=== PATIENT | female | born 1990 | race Caucasian/White ===

== ENCOUNTER → 2020-09-28 14:39 | Outpatient (BNVA) | payer OTHER, SELFPAY | PROVIDERS: Family Provider Nurse Practitioner Family; Visit Provider Obstetrics & Gynecology | DX: Z34.90 Encounter for supervision of normal pregnancy, unspecified, unspecified trimester (principal) | CPT/HCPCS: 80307; 84315; 85025; 86592; 86762; 86803; 86850; 86900; 87086; 87340; 87491; 87591; 87661; 88175 ==

== ENCOUNTER → 2020-11-27 11:32 | Outpatient (BNVA) | payer OTHER, SELFPAY | PROVIDERS: Family Provider Nurse Practitioner Family; Visit Provider Obstetrics & Gynecology | DX: Z34.90 Encounter for supervision of normal pregnancy, unspecified, unspecified trimester (principal) | CPT/HCPCS: 82950; 85025 ==

== ENCOUNTER → 2021-01-11 09:28 | Outpatient (BNVA) | payer OTHER, SELFPAY | PROVIDERS: Family Provider Nurse Practitioner Family; Visit Provider Obstetrics & Gynecology | DX: O09.30 Supervision of pregnancy with insufficient antenatal care, unspecified trimester (principal); O34.219 Maternal care for unspecified type scar from previous cesarean delivery; F12.90 Cannabis use, unspecified, uncomplicated; O99.320 Drug use complicating pregnancy, unspecified trimester; Z3A.00 Weeks of gestation of pregnancy not specified | CPT/HCPCS: 84315; 87081 ==

== ENCOUNTER → 2021-02-08 08:58 | Outpatient (BNVA) | payer OTHER, SELFPAY | PROVIDERS: Family Provider Nurse Practitioner Family; Visit Provider Obstetrics & Gynecology | DX: Z34.83 Encounter for supervision of other normal pregnancy, third trimester (principal) | CPT/HCPCS: 84315; 87635 ==

== ENCOUNTER 2021-02-10 05:48 | Inpatient (IN) | payer OTHER, SELFPAY ==
[2021-02-10] VITALS (98 sets, daily range): BP systolic 106–155; BP diastolic 56–92; PULSE 48–102; RESP 16; TEMP 35.7–38.4; O2SAT 81–100; BMI 32.4
[2021-02-10 06:03] LABS: Basophils # 0.1 10^3/uL (0.0-0.1); Basophils % 0.5 %; Eosinophils # 0.1 10^3/uL (0.0-0.8); Eosinophils % 0.4 %; Hematocrit 38.6 % (37.0-47.0); Hemoglobin 13.4 g/dL (11.5-15.3); Lymphocytes # 3.3 10^3/uL (0.8-4.8); Lymphocytes % 17.6 %; Mean Corpuscular HGB Conc 34.7 g/dL (30.0-36.0); Mean Corpuscular Hemoglobin 31.8 pg (28.0-34.0); Mean Corpuscular Volume 91.7 fl (81-99); Mean Platelet Volume 12.5 fL (7.4-10.4); Monocytes % 5.4 %; Neutrophils # 14.15 10^3/uL (1.8-7.7); Neutrophils % 75.4 %; Nucleated Red Blood Cells % 0 %; Platelet Count 191 10^3/cmm (130-400); Red Blood Count 4.21 10^6/uL (4.1-5.3); Red Cell Distribution Width 13.1 % (12.1-15.1); White Blood Count 18.8 10^3/uL (4.0-10.0)
[2021-02-10] MEDS: lactated ringers 1,000 ML 999 ML IV ×4 (06:05→17:04)
[2021-02-10] MEDS: fentaNYL 50 mcg/mL INJ 2mL IVP ×2 (06:10→07:13)
--- NOTE | 2021-02-10 06:22 | PM.OPHPUD ---
Labor & Delivery H&P Update Date of Procedure: February 10, 2021 Date H&P Performed: 02/08/21 H&P update information: I have reviewed H&P completed within last 30 days, I have examined patient prior to procedure and Changes to prior documentation as noted here Changes to previous documentation: The patient presented in active labor. She was scheduled for a repeat today and has elected to . cervix 3.5/100/-2. Labor started at midnight and contractions became stronger at 3:00 am. Admission Diagnosis: active labor at 40 5/7 weeks
[2021-02-10] MEDS: dextrose 5%-lactated ringers 1,000 ML 125 ML IV (08:55)
[2021-02-10 09:46] LABS: Amphetamines Screen Urine Negative (Negative); Barbiturates Screen Urine Negative (Negative); Benzodiazepines Screen Urine Negative (Negative); Cocaine Screen Urine Negative (Negative); Opiate Screen Urine Negative (Negative); PCP Screen Urine Negative (Negative); THC Screen Urine Positive (Negative)
--- NOTE | 2021-02-10 15:30 | PC.NURSE ---
Prater noted to have minimal output since 1200. Attempted to deflate balloon and advance past baby's head. Prater only contained 2 mL of fluid and noted to be faulty. Prater placed in urethra and advanced to port and balloon inflated. Balloon pulled forward in bladder until resistance met. Prater removed and new one placed with no urine return. Verified placement with second nurse.
[2021-02-10] MEDS: dextrose 5%-lactated ringers 1,000 ML 999 ML IV (16:06)
[2021-02-10] MEDS: acetaminophen 325 mg Tablet 650 MG PO ×2 (16:35→23:37)
--- NOTE | 2021-02-10 16:41 | P.PN_ITS ---
PHYS THER Subjective Subjective: Interval history: The patient was scheduled for a repeat this morning. She presented in active labor. Her original plan was to have a . She was allowed to labor and she received an epidural for pain management. She has made only minimal change in the 12 hours that she has been here, in spite of having a very adequate contraction pattern. I have discussed that we can keep going, but my recommendation would be to perform a . She agrees and would like to proceed. She has now spiked a fever of 101.5 and we will start antibiotics per protocol Labor: Station: -1 Amniotic Membrane Status: Ruptured Monitor Mode: Palpation Contraction Pattern: Regular Status: Category II Vitals/I&O/Wt Last Vital Signs Temp 98.9 F 02/10/21 13:55 Pulse 70 02/10/21 16:11 Resp 16 02/10/21 13:30 BP 124/63 02/10/21 16:11 Pulse Ox 100 02/10/21 16:11 02/10/21 02/10/21 02/10/21 06:59 14:59 22:59 Intake Total 3000 / 3000 Output Total 230 / 230 12 / 242 Balance 2770 / 2770 -12 / 2758 Weight last 48 hrs Weight 5.855 oz Weight 166 lb Physical Exam : MANUAL OB EXAM: dilated 5 cm, effaced fully and station -2 Extremity: COMMON NORMALS: no clubbing, cyanosis or edema and no calf tenderness Urinary Catheter Management^: Prater Latex: Cath Placed During This Visit: yes, but has since been removed by the nurse Reason for Continuing Indwelling Catheter: Decision to DC Catheter Urinary Catheter Date of Insertion: 02/10/21 Urinary Catheter Time of Insertion: 15:30 Date Urinary Catheter Removed: 02/10/21 Time Urinary Catheter Discontinued: 15:30 Data : 02/10/21 05:27 A&P Assessment and plan (1) Failure to progress in labor: Status: Acute (2) Previous delivery affecting : Status: Acute Attestations Medical Necessity Statement*: The patient will undergo section and need to be here at least two nights. 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
--- NOTE | 2021-02-10 16:49 | PC.NURSE ---
After Dr. vázquez's exam she talked with patient regarding delivery. Patient agreeable at this time.
[2021-02-10] MEDS: ampicillin 2,000 MG in sodium chloride 0.9% (plus) 50 ML 100 MG IV (17:03)
[2021-02-10] MEDS: metoclopramide 5 mg/mL SDV 2 mL 10 MG IVP (17:04)
[2021-02-10] MEDS: famotidine 20 mg/2 mL INJ IVP (17:04)
[2021-02-10] MEDS: citric acid-sodium citrate 30 mL UDC PO (17:05)
--- NOTE | 2021-02-10 18:53 | PM.OP ---
Operative Report Date of procedure: February 10, 2021 Pre-op Diagnosis: failure to progress, failed TOLAC Post-op diagnosis: same Post-op Findings: term female in the ROP presentation. Bladder adhesion to the entire anterior of uterus. Procedure Done: repeat Specimens removed/disposition: placenta- not sent to pathology Pathology: none sent Surgeon: Jaye Mandujano Anesthesia: Epidural and Other Estimated blood loss (mL): 500 IV fluids (mL): 900 Urine output (mL): 150 Complications: none Findings: term female in the cephalic presentation Condition: stable Disposition: floor Brief History: The patient was initially scheduled for a repeat , but presented to labor and delivery early in active labor. She failed to progress and it was determined that the baby was malpositioned and OP. A repeat was decided. Procedure: The patient was taken to the operating room where spinal anesthesia was administered and found to be adequate. She was prepped and draped in the normal sterile fashion in the dorsal supine position with a leftward tilt. A Pfannenstiel skin incision was made and carried down to the underlying layer of fascia. The fascia was nicked in the midline and extended laterally with the Trejo scissors. The fascia was then tented up and the rectus muscles dissected off sharply. The rectus muscles were and the peritoneum entered bluntly with the digit. The peritoneal incision was extended superiorly and inferiorly with good visualization of the bladder. The Wallace O retractor was placed. It was clear of any bowel or omentum. The bladder flap was created sharply with the Metzenbaum scissors. A low transverse uterine incision was made and carried down to the bag of water. The bag of water was ruptured and the uterine incision extended cephalocaudad. The scalp was grasped and brought through the incision. The nose and mouth were bulb suctioned. The shoulders and body delivered atraumatically. The baby was allowed to rest, while being dried, for 1 minute and then the cord was clamped and cut. The baby was handed to the waiting business assistant. The placenta was delivered by expression. The uterus was exteriorized and cleared of all clots and debris. The uterine incision was closed with 0 Vicryl in a running fashion. A second imbricating layer of 3-0 Monocryl was used to close the uterus. The bladder flap was closed with 3-0 Monocryl. There was excellent hemostasis. The Wallace O retractor was removed. The uterus was returned to the abdomen. The peritoneum was closed with 3-0 Monocryl, incorporating the rectus muscle. The fascia was closed with 0 Vicryl in 2 separate sutures overlapping in the midline. The skin was closed with absorbable clayton. Apgars on baby 7 at 1 minute and 8 at 5 minutes. weight 8 pounds 4 ounces. Mother and baby were stable post delivery.
--- NOTE | 2021-02-10 19:31 | PC.NURSE ---
Epidural removed by Will in OR
[2021-02-10] MEDS: ketorolac 30 mg/mL INJ IVP (20:38)
[2021-02-10] MEDS: ampicillin 1,000 MG in sodium chloride 0.9% (plus) 50 ML 100 MG IV (20:56)
[2021-02-11] VITALS (7 sets, daily range): BP systolic 110–145; BP diastolic 59–65; PULSE 49–65; TEMP 36.4–36.7
[2021-02-11] MEDS: dextrose 5%-lactated ringers 1,000 ML 125 ML IV (00:18)
[2021-02-11] MEDS: ketorolac 30 mg/mL INJ IVP ×2 (00:59→09:00)
[2021-02-11] MEDS: ampicillin 1,000 MG in sodium chloride 0.9% (plus) 50 ML 100 MG IV ×4 (00:59→13:43)
--- NOTE | 2021-02-11 03:59 | PC.NURSE ---
This nurse had the monitor on for blood pressure and pulse to take every 15 min. from [id number]. pt was not placed in correct room, so vitals did not record in chart. This nurse was at bedside every 15 min and observed the vitals taken. All vitals were within normal limits.
[2021-02-11 07:11] LABS: Hematocrit 26.7 % (37.0-47.0); Hemoglobin 9.1 g/dL (11.5-15.3); Mean Corpuscular HGB Conc 34.1 g/dL (30.0-36.0); Mean Corpuscular Hemoglobin 32.5 pg (28.0-34.0); Mean Corpuscular Volume 95.4 fl (81-99); Mean Platelet Volume 12.3 fL (7.4-10.4); Platelet Count 142 10^3/cmm (130-400); Red Cell Distribution Width 13.6 % (12.1-15.1); White Blood Count 17.8 10^3/uL (4.0-10.0)
--- NOTE | 2021-02-11 08:32 | PM.PN ---
Vitals/I&O/Wt Last Vital Signs Temp 97.5 F L 02/11/21 04:35 Pulse 54 L 02/11/21 04:36 Resp 16 02/10/21 20:00 BP 110/60 02/11/21 04:36 Pulse Ox 96 02/10/21 19:25 02/10/21 02/11/21 02/11/21 22:59 06:59 14:59 Intake Total 3314 / 6314 152 / 6466 Output Total 962 / 1192 1100 / 2292 300 / 300 Balance 2352 / 5122 -948 / 4174 -300 / -300 Weight last 48 hrs Weight 5.855 oz Weight 166 lb Physical Exam Narrative: EXAM NARRATIVE: The patient is doing well this morning. She has no concerns. Her pain is well controlled. She is breast feeding well. She is ambulating and tolerating a regular diet. Const: COMMON NORMALS: no acute distress, average body habitus, patient oriented x3, no limitations, healthy appearing, alert and well nourished GENERAL APPEARANCE: cooperative, comfortable, well kempt and well developed ORIENTATION/CONSCIOUSNESS: Yes awake, Yes oriented to person, Yes oriented to place and Yes oriented to time Resp: COMMON NORMALS: normal respiratory effort EFFORT & INSPECTION: Yes able to speak in complete sentences GI: COMMON NORMALS: Soft to palpation and non-tender PALPATION: Yes Soft to palpation Extremity: COMMON NORMALS: no clubbing, cyanosis or edema and no calf tenderness Neuro: COMMON NORMALS: patient oriented x3 SENSORIUM/ORIENTATION: Yes alert, Yes oriented to person, Yes oriented to place and Yes oriented to time Psych: APPEARANCE: Yes well kempt Urinary Catheter Management^: Prater Latex: Cath Placed During This Visit: yes, but has since been removed by the nurse Reason for Continuing Indwelling Catheter: Decision to DC Catheter Urinary Catheter Date of Insertion: 02/10/21 Urinary Catheter Time of Insertion: 15:30 Date Urinary Catheter Removed: 02/11/21 Time Urinary Catheter Discontinued: 06:55 Data : 02/11/21 06:45 Attestations Medical Necessity Statement*: The patient had a . She will be here for more than 2 midnights. 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
[2021-02-11] MEDS: docusate sodium 100 mg Capsule PO ×2 (09:00→17:23)
[2021-02-11] MEDS: ferrous sulfate EC 325 mg Tablet PO ×2 (09:00→17:23)
[2021-02-11] MEDS: prenatal vitamin Capsule 1 CAP PO (09:00)
[2021-02-11] MEDS: BuSPIRONE 10 mg Tablet 5 MG PO ×2 (09:18→17:23)
[2021-02-11] MEDS: HYDROcodone-acetaminophen 5-325 mg Tablet PO ×3 (11:15→20:31)
--- NOTE | 2021-02-11 19:31 | ANE.PACU2 ---
Inpatient post-anesthesia follow up: Airway intact: Yes Vital signs: Temperature 98.1 F Pulse Rate 64 Respiratory Rate 16 Blood Pressure 145/63 Pulse Oximetry 96 Oxygen Delivery Me thod Room Air Oxygen Flow Rate Fraction of Inspir ed Oxygen Hydration adequate: Yes Nausea and vomiting: No Pain level: 2 Mental status: Baseline
[2021-02-12 03:00] VITALS: RESP 15
[2021-02-12 04:01] VITALS: BP 115/72; PULSE 65; TEMP 37
--- NOTE | 2021-02-12 07:05 | P.DS_ITS ---
Discharge Providers Date of Admission: 02/10/21 05:48 Date of Discharge: February 12, 2021 Attending Provider at Admission: Jaye Mandujano MD Attending Provider at Discharge: Jaye Mandujano MD Diagnoses at Discharge Discharge Diagnosis (1) Failure to progress in labor: Status: Acute (2) Previous delivery affecting : Status: Acute Permanent problem details: Documented LTCS by Dr. Chapa at [facility] -- see scanned document Reason for Visit Reason for Visit: contractions Hospital Course Hospital Course The patient was admitted in active labor. She failed to progress past 5 cm. She underwent repeat . She did well postoperatively and was ready for discharge on day#2 Physical Exam Narrative: EXAM NARRATIVE: The patient is doing well this morning. No concerns. Const: COMMON NORMALS: no acute distress, average body habitus, patient oriented x3, no limitations, healthy appearing, alert and well nourished GENERAL APPEARANCE: cooperative, comfortable, well kempt and well developed ORIENTATION/CONSCIOUSNESS: Yes awake, Yes oriented to person, Yes oriented to place and Yes oriented to time Resp: COMMON NORMALS: normal respiratory effort EFFORT & INSPECTION: Yes able to speak in complete sentences GI: COMMON NORMALS: Soft to palpation and non-tender PALPATION: Yes Soft to palpation Extremity: COMMON NORMALS: no clubbing, cyanosis or edema and no calf tenderness Neuro: COMMON NORMALS: patient oriented x3 SENSORIUM/ORIENTATION: Yes alert, Yes oriented to person, Yes oriented to place and Yes oriented to time Psych: APPEARANCE: Yes well kempt Skin: WOUNDS: Yes surgical site (clean/dry/intact) Urinary Catheter Management^: Prater Latex: Cath Placed During This Visit: yes, but has since been removed by the nurse Reason for Continuing Indwelling Catheter: Decision to DC Catheter Urinary Catheter Date of Insertion: 02/10/21 Urinary Catheter Time of Insertion: 15:30 Date Urinary Catheter Removed: 02/11/21 Time Urinary Catheter Discontinued: 06:55 Discharge Data Data Completed and Pending: Labs from last 24 hours 02/11/21 06:45 WBC 17.8 H RBC 2.80 L Hgb 9.1 L D Hct 26.7 L D MCV 95.4 MCH 32.5 MCHC 34.1 RDW 13.6 Plt Count 142 MPV 12.3 H Vitals: Last Vital Signs Temp 98.6 F 02/12/21 04:01 Pulse 65 02/12/21 04:01 Resp 15 02/12/21 03:00 BP 115/72 02/12/21 04:01 Pulse Ox 96 02/10/21 19:25 Discharge Plan Discharge Patient Disposition: Home Condition: Stable Prescriptions: New hydrocodone-acetaminophen 5-325 mg Tablet 2 tab PO Q6H PRN (Reason: Moderate To Severe Pain) Qty: 30 RF: 0 Continued vit-ferrous sulfat-FA 27 mg iron- 0.8 mg tablet 1 tab PO DAILY RF: 0 ferrous sulfate [Feosol] 325 mg (65 mg iron) tablet 325 mg PO BID RF: 0 buspirone 5 mg tablet 5 mg PO BID Qty: 60 RF: 12 Discharge Orders: Discharge Order (Routine); Ordered 02/12/21 Ordered By: Jaye Mandujano Referrals: Jaye Mandujano MD [Physician] - 02/18/21 10:00 am (Your 1 week incision check is scheduled for 02/18/2021 @10:00. Your 6 week post- visit is scheduled for 03/25/2021 @1:45. ) Patient Instructions: Vitamins (By mouth), Depression (GEN), Pre-eclampsia and Eclampsia (DC), Bleeding (DC), OB WHC, OB Discharge Report, OB Food/Drug Interaction Guide, Opioid Safety, OB Home Care, OB Proud Parent Packet Discharge Attestations Time Spent in Discharge Care*: less than 30 min Quality Metrics Clinical Quality Measures During this hospital stay, did patient experience: None Coding Level of Care Code Acute Chg FW DC note Exam Problem Focused Diagnoses Failure to progress in labor O62.2 Previous delivery affecting O34.219
[2021-02-12] MEDS: HYDROcodone-acetaminophen 5-325 mg Tablet PO (07:19)
[2021-02-12] MEDS: prenatal vitamin Capsule 1 CAP PO (09:27)
[2021-02-12] MEDS: ferrous sulfate EC 325 mg Tablet PO (09:27)
[2021-02-12] MEDS: ibuprofen 800 mg tablet PO (09:30)
[2021-02-12] MEDS: docusate sodium 100 mg Capsule PO (09:30)
[2021-02-12] MEDS: BuSPIRONE 10 mg Tablet 5 MG PO (09:31)
[2021-02-12 09:36] VITALS: BP 143/65; PULSE 49
--- NOTE | 2021-02-12 10:39 | PC.NURSE ---
DSS worker assessed mom and , verbally notified this nurse that may discharge home with mother. DSS will do a home walk through next week.
[2021-02-12 11:13] VITALS: BP 145/76; PULSE 61; TEMP 36.4
[2021-02-12 11:15] VITALS: BP 145/76; PULSE 61; TEMP 36.4
== END 2021-02-12 11:20 | disposition home or self-care (01) | DRG 787 ==
PROVIDERS: Admitting Provider Obstetrics & Gynecology; Visit Provider Obstetrics & Gynecology
PROC: 10D00Z1 Extraction of Products of Conception, Low, Open Approach (ICD-10-PCS; CPT 59514; principal; 2021-02-10 17:45)
DX: O62.2 Other uterine inertia (principal); O99.324 Drug use complicating childbirth; Z3A.40 40 weeks gestation of pregnancy; Z37.0 Single live birth; F12.90 Cannabis use, unspecified, uncomplicated; O34.219 Maternal care for unspecified type scar from previous cesarean delivery; O32.8XX0 Maternal care for other malpresentation of fetus, not applicable or unspecified; O99.334 Smoking (tobacco) complicating childbirth; F17.210 Nicotine dependence, cigarettes, uncomplicated; O99.344 Other mental disorders complicating childbirth; F41.9 Anxiety disorder, unspecified; F32.9 Major depressive disorder, single episode, unspecified; O99.892 Other specified diseases and conditions complicating childbirth; N73.6 Female pelvic peritoneal adhesions (postinfective)
CPT/HCPCS: 36415; 51702; 59025; 59409; 80306; 85025; 85027; 96374; 96375; 98960; 99211; J0290; J0690; J1580; J1885; J2274; J2405; J2765; J2795; J3010; J3490

== ENCOUNTER → 2023-03-08 08:08 | Outpatient (BNVA) | payer MEDICAID, SELFPAY | PROVIDERS: Visit Provider Nurse Practitioner Women's Health | DX: Z30.431 Encounter for routine checking of intrauterine contraceptive device (principal); Z30.430 Encounter for insertion of intrauterine contraceptive device | CPT/HCPCS: 81025 ==

== ENCOUNTER → 2024-05-20 14:22 | Outpatient (BNVA) | payer MEDICAID, SELFPAY | PROVIDERS: Visit Provider Nurse Practitioner Women's Health | DX: R30.0 Dysuria (principal) | CPT/HCPCS: 87086 ==